=== PATIENT | female | born 1960 | race Caucasian/White ===

== ENCOUNTER 2020-05-02 09:22 | Day surgery (SDC) | payer OTHER ==
[2020-05-02] MEDS ORDERED: Ringers Lactate 1,000 ML IV ONE (10:08)
[2020-05-02] MEDS ORDERED: propofoL 200 MG/20 ML VIAL IV ONE ×2 (11:15→11:54)
[2020-05-02] MEDS ORDERED: LIDOCAINE 1% MPF 5 ML VIAL ONE (11:16)
--- NOTE | 2020-05-02 11:55 | ENDO RPT ---
[address], [address] COLONOSCOPY PROCEDURE REPORT EXAM DATE: 05/02/2020 PATIENT NAME: Teresa Vallecillo MR #: [id number] BIRTHDATE: 1960 ATTENDING: Philip Franco DR STATUS: outpatient CURTAIN DRIER: Daquan Cao and Salina Holland RN INDICATIONS: The patient is a 60 yr old Female here for a colonoscopy due to colon cancer screening PROCEDURE PERFORMED: Colonoscopy with biopsy - cold polypectomy MEDICATIONS: Per Anesthesia. ESTIMATED BLOOD LOSS: None CONSENT: The patient understands the risks and benefits of the procedure and understands that these risks include, but are not limited to: sedation, allergic reaction, infection, perforation and/or bleeding. Alternative means of evaluation and treatment include, among others: physical exam, x-rays, and/or surgical intervention. The patient elects to proceed with this endoscopic procedure. DESCRIPTION OF PROCEDURE: During intra-op preparation period all mechanical medical equipment was checked for proper function. Hand hygiene and appropriate measures for infection prevention was taken. Procedure, possible complications, alternatives including, but not limited to possibility of bleeding, perforation, tear, infection, sepsis, need for surgery, need for blood transfusion, were explained to the patient. After the risks, benefits and alternatives of the procedure were thoroughly explained, Informed consent was verified, confirmed and timeout was successfully executed by the treatment team. The patient was placed in the left lateral position. A digital rectal exam was performed and revealed a palpable rectal mass. After appropriate level of anesthesia, the scope was passed. The [id number] ([id number]) endoscope was introduced through the anus and advanced to the cecum, which was identified by both the appendix and ileocecal valve. The quality of the prep was fair. The instrument was then slowly withdrawn as the colon was fully examined. Scope withdrawal time was 12 minutes. COLON FINDINGS: Three small smooth flat polyps with friable surfaces were found at the cecum and splenic flexure. A polypectomy was performed with a cold snare and with cold forceps. The resection was complete, the polyp tissue was completely retrieved and sent to histology. A medium sized polypoid shaped, smooth and firm pedunculated polyp was found in the anal canal, this was unable to be removed due to position, firmness, snare unable to transect. Small internal hemorrhoids were found. Retroflexed views revealed no abnormalities. The scope was then completely withdrawn from the patient and the procedure terminated. ADVERSE EVENTS: There were no complications. IMPRESSIONS: 1. Three small flat polyps were found at the cecum and splenic flexure; polypectomy was performed with a cold snare and with cold forceps 2. Medium sized pedunculated polyp was found 3. Small internal hemorrhoids RECOMMENDATIONS: 1. avoid NSAIDS for 2 weeks 2. fiber rich diet 3. await biopsy results 4. follow-up: office 2 week(s) 5. Monitor for any evidence of rectal bleeding. 6. surgery - Patient will require Exam under anesthesia with anal polyp removal 7. hemorrhoidal hygiene 8. increase dietary water RECALL: for Colonoscopy, pending biopsy results. Philip Franco DR eSigned: Philip Franco DR 05/02/2020 11:54 AM cc: CPT CODES: ICD9 CODES: PATIENT NAME: Teresa Vallecillo MR#: [id number]
[2020-05-02] MEDS ORDERED: FENTANYL CITR 100 MCG/2 ML ONE (12:54)
[2020-05-02] MEDS ORDERED: MIDAZOLAM HCL 2 MG/2 ML INJ ONE (12:54)
[2020-05-02 13:19] VITALS: O2SAT 100
[2020-05-02 13:20] VITALS: TEMP 98.7
[2020-05-02 13:21] VITALS: BP 137/76
== END 2020-05-02 12:55 | disposition home or self-care (01) ==
LOC: OR 09:22
PROVIDERS: ATTEND Surgery
PROC: 0DBL8ZX Excision of Transverse Colon, Via Natural or Artificial Opening Endoscopic, Diagnostic (ICD-10-PCS; 2020-05-02)
PROC: 0DBH8ZX Excision of Cecum, Via Natural or Artificial Opening Endoscopic, Diagnostic (ICD-10-PCS; principal; 2020-05-02 11:45)
DX: D12.0 Benign neoplasm of cecum (principal); D12.3 Benign neoplasm of transverse colon; K62.0 Anal polyp; K64.9 Unspecified hemorrhoids; Z12.11 Encounter for screening for malignant neoplasm of colon; Z72.0 Tobacco use; I10 Essential (primary) hypertension; M19.90 Unspecified osteoarthritis, unspecified site
CPT/HCPCS: 88305; 45385; 45380; J2704 ×2; J7120; J2250; J3010

== ENCOUNTER 2020-06-14 07:07 | Day surgery (SDC) | payer OTHER ==
--- OUTSIDE RECORDS SUMMARY | 2020-06-14 07:11 | XMS REPORT | Continuity of Care Document ---
:1960 Author Organization [facility] t Address [address] [place] [address] Care Team Providers Name Role Phone Unavailable Unavailable Unavailable Problems This patient has no known problems. Allergies, Adverse Reactions, Alerts Allergy Allergy Status Severity Reaction(s) Onset Inactive Treating Comm ents Source Name Type Date Date Clinician Lisinopr Adverse [facility] cough [facility] Medications Ordered Filled Start Stop Current Ordering Indication Dosage Frequency Signature Comments Components Source Medication Medication Date Date Medication? Clinician (SIG) Name Name Martinez Henriquez Yes Dorothy [address] [facility] [place] [facility] Losartan Losartan Yes Dorothy [address] [facility] Potassium Potassium [place] [facility] Advil Advil Yes Dorothy [address] [facility] [place] with food [facility] or milk [facility] Zyrtec Zyrtec Yes Dorothy [address] [facility] Allergy Allergy [place] [facility] Tylenol Tylenol Yes Dorothy [address] [facility] [place] [facility] Procedures This patient has no known procedures. Encounters Start End Encounter Admission Attending Care Care Encounter Source Date/Time Date/Time Type Type Clinicians Facility Department ID 2020-06-09 2020-06-09 Outpatient [facility] [id number] [facility] 2020-04-28 2020-04-28 Outpatient [facility] [id number] [facility] 2020-04-28 2020-04-28 Out[facility] [id number] [facility] 2020-04-28 2020-04-28 Out[facility] [id number] [facility] 2020-04-13 2020-04-13 Out[facility] [id number] [facility] 2020-03-15 2020-03-15 Out[facility] [id number] [facility] 2020-03-14 2020-03-14 Out[facility] [id number] [facility] 2020-03-13 2020-03-13 Out[facility] [id number] [facility] 2020-02-11 2020-02-11 Outpatient [facility] [id number] [facility] 2020-02-04 2020-02-04 Outpatient [facility] [id number] [facility] 2020-01-24 2020-01-24 [facility] [id number] [facility] 09:40[facility]00 09:40:00 [facility] 2020-01-10 2020-01-10 [facility] [id number] [facility] 08:58:00 08:58:00 [facility] 2019-12-08 2019-12-08 [facility] [id number] [facility] 16:40:00 16:40:00 t [facility] Medicine l Medicine Outpati ent Clinics 2019-11-03 2019-11-03 [facility] [id number] 09[facility]20:00 09:20:[address] [facility] [address] [facility] Medicine l Medicine Outpat[facility] ent Clinics 2019-11-03 2019-11-03 [facility] [id number] 08:13:00 08:13:00 t [facility] Medicine l Medicine Outpati ent Clinics 2019-10-13 2019-10-13 [facility] [id number] 16:40:00 16:40:00 t [facility] l Medicine Outpati ent Clinics 2019-10-12 2019-10-12 [facility] [id number] 09:58:00 09:58:00 t [facility] l Medicine Outpati ent Clinics 2019-07-21 2019-07-21 [facility] [id number] 18:04:00 18:04:00 t [facility] Medicine Outpati ent Clinics 2019-06-30 2019-06-30 [facility] [id number] [address] 08:58:00 08:58:00 t [facility] Medicine l Medicine Outpati ent Clinics 2019-06-23 2019-06-23 [facility] [id number] 13[facility]00:00 13:00:00 t [facility] [address] [facility] Medicine l Medicine Outpati ent Clinics 2019-06-16 2019-06-16 [facility] [id number] [address] 16:20:00 16:20:[address] [facility] l Medicine Outpati ent Clinics 2019-06-02 2019-06-02 [facility] [id number] [address] 14[facility]00:00 14:00:00 t [facility] l Medicine Outpati ent Clinics 2019-05-31 2019-05-31 [facility] [id number] 14:00:00 14:00:00 t [facility] Medicine Outpati ent Clinics 2019-05-20 2019-05-20 [facility] [id number] 13:00:00 13:00:00 [facility] Medicine Outpati ent Clinics 2019-05-14 2019-05-14 [facility] [id number] 16:40:00 16:40:00 [facility] Medicine Outpati ent Clinics 2019-04-29 2019-04-29 [facility] [id number] 11:40:00 11:40:00 [facility] Outpat[facility] ent Clinics 2019-04-26 2019-04-26 [facility] [id number] 14:40:00 14:40:00 [facility] Clin[facility] 2019-04-23 2019-04-23 [facility] [id number] 11:40:00 11:40:00 [facility] Clin[facility] 2019-04-07 2019-04-07 [facility] [id number] 16:20:00 16:20:00 [facility] Clin[facility] 2019-04-01 2019-04-01 [facility] [id number] [facility] 16:20:00 16:20:00 [facility] Clin[facility] 2019-03-26 2019-03-26 [facility] [id number] 14:00:00 14:00:00 [facility] Clin[facility] 2019-03-23 2019-03-23 [facility] [id number] 16:20:00 16:20:00 t [facility] Medicine Outpati ent Clinics 2019-03-18 2019-03-18 [facility] [id number] 11:40:00 11:40:00 t [facility] Medicine Outpati ent Clinics 2019-03-16 2019-03-16 [facility] [id number] 09:00:00 09:00:00 t [facility] Medicine Outpati ent Clinics 2019-03-03 2019-03-03 [facility] [id number] 10:00:00 10:00:00 t [facility] Medicine Out[facility]i ent Clinics 2019-02-18 2019-02-18 [facility] [id number] [address] 11:40:00 11:40:00 t [facility] Medicine Outpati ent Clinics 2019-01-29 2019-01-29 [facility] [id number] 15:57:00 15:57:00 t [facility] Medicine Outpati ent Clinics 2018-12-29 2018-12-29 [facility] [id number] 14:40:00 14:40:00 t [facility] Medicine [facility] Clinics 2018-09-01 2018-09-01 [facility] [id number] 11:20:00 11:20:00 t [facility] Clinics 2018-08-11 2018-08-11 [facility] [id number] 12:53:00 12:53:00 t [facility] Medicine Outpat[facility] Clinics 2018-06-01 2018-06-01 [facility] [id number] 08[facility]45:00 08:45:00 t [facility] Medicine Outpati ent Clinics 2018-05-25 2018-05-25 [facility] [id number] 17:55:00 17:55:00 [facility] 2018-05-25 2018-05-25 Outpatient Ivan Valdez [id number] [facility] 15:47:00 15:47:00 [facility] 2018-04-15 2018-04-15 Outpatient Ivan Valedz [id number] [facility] [address] 09:48:00 09:48:00 [facility] ent Clinics Results This patient has no known results.
--- OUTSIDE RECORDS SUMMARY | 2020-06-14 07:12 | XMS REPORT ---
:1960 Author Organization [facility] Address [address] [place] [address] Care Team Providers Name Role Phone Shellie Unavailable [phone] PROBLEMS Type Condition ICD9-CM PCX40-TO Onset Condition W/U Status Risk SNOM ED Notes Code Code Dates Status Code Problem HTN I10 Active confirmed 13940186 (hypertension ) Problem Mixed E78.2 Active confirmed 599759285 hyperlipidemi a Problem Anxiety F41.9 Active confirmed 11955720 Problem Adverse T46.6X5A Active confirmed 558323505 effect of antihyperlipi demic and antiarteriosc lerotic drugs, initial encounter Problem Depression F41.8 Active confirmed 703754226 with anxiety Problem History of Z98.82 Active confirmed breast implant Problem Osteopenia of M85.88 Active confirmed 723900 000 lumbar spine Problem Vitamin D E55.9 Active confirmed 31453985 deficiency Problem Breast Z98.82 Active confirmed 688308390 implant status Problem Chronic J30.9 Active confirmed 97103554 allergic rhinitis Problem Myalgia, M79.10 Active confirmed [id number] unspecified 0953026 site ALLERGIES Allergen (clinical drug Drug/Non Drug Allergy Reaction Allergy Type Onset Date Status ingredient) documented on EMR lisinopril Lisinopril([facility] cough Drug Allergy Active Code:[address]-23) ENCOUNTERS from 1960 to 2020-06-13 Encounter Location Date Provider Diagnosis [facility] [address] 29 May, 2020 Dorothy Hensley Pre-procedure lab Family Medicine [place], [place] exam Z01 .812 [id number] IMMUNIZATIONS No Information SOCIAL HISTORY Tobacco Use: Social History Observation Description Date Details (start date - stop date) Current Smoker Sex Assigned At : Social History Observation Description Sex Assigned At Unknown Alcohol Screen Question Answer Notes Did you have a drink containing alcohol in the past year? Ye s Points 0 Interpretation Negative How many drinks did you have on a typical day when you were 1 or 2 (0 points) drinking in the past year? Tobacco Use/Smoking Question Answer Notes Are you a current smoker How many cigarettes a day do you smoke? 6-10 How soon after you wake up do you smoke your first cigarette ? 31-60 minutes How often do you smoke cigarettes? every day REASON FOR REFERRAL No Information VITAL SIGNS No information MEDICATIONS Medication SIG (Take, Route, Notes Start Date End Date Status Frequency, Duration) BusPIRone HCl 5 MG 1 tablet Orally Twice a Apr, Active day for 90 days Tylenol 325 MG 1 tablet as needed Orally Active every 4 hrs Advil 200 MG 1 tablet with food or A ctive milk as needed Orally Three times a day Losartan Potassium 100 MG 1 tablet Orally Once a Active day for 90 Zetia 10 MG 1 tablet Orally Once a A ctive day for 90 Metoprolol Succinate ER TK 1 T PO QD Oral for 30 Active 50 MG Zyrtec Allergy 10 MG 1 tablet Orally Once a Active day for 30 day(s) PROCEDURES No Information RESULTS Component Value Reference Range SARS-COV 2 Antigen Reviewed date:06/13/2020 19:04:01 Interpretation:Negative Performing Lab: REASON FOR VISIT COVID Antigen - NEGATIVE MEDICAL (GENERAL) HISTORY Type Description Date Medical History Hyperlipidemia Medical History Depression with anxiety Medical History HTN (hypertension) Medical History Sciatica of left side Medical History Sciatica of left side Medical History Sciatica, right side Medical History Pain in right knee Medical History Pain in left knee Medical History Ventral hernia without obstruction or ga ngrene Medical History Other headache syndrome Medical History Other headache syndrome Surgical History 1985 Surgical History Hysterectomy Fibroids 2000 Surgical History APA bilateral Knees- torn meniscus 2012, 2016 Surgical History Breast Implants Goals Section No Information Health Concerns No Information MEDICAL EQUIPMENT No Information MENTAL STATUS No Information FUNCTIONAL STATUS No Information ASSESSMENTS Encounter Date Diagnosis Assessment Notes Treatment Notes Treatm ent Clinical Notes May, Pre-procedure lab exam (ICD-10 - Z01.812) PLAN OF TREATMENT Medication Medication Name Sig Start Date Stop Date Losartan Potassium 100 MG 1 tablet Orally Once a day for 90 Zetia 10 MG 1 tablet Orally Once a day for 90 Insurance Providers Payer Name Payer Payer Insured Name Patient Coverage Covera ge End Address Phone Relationship to Start Date Wilfrid e Insured [employer] [phone] Teresa Vallecillo self [id number] [facility] [id number]
[2020-06-14] MEDS ORDERED: Ringers Lactate 1,000 ML IV ONE (07:42)
[2020-06-14] MEDS ORDERED: CEFAZOLIN/SWI 1gm 1 GM/10 ML SYR ONE (07:42)
[2020-06-14] MEDS ORDERED: MIDAZOLAM HCL 2 MG/2 ML INJ ONE (07:55)
[2020-06-14] MEDS ORDERED: propofoL 200 MG/20 ML VIAL IV ONE (07:55)
[2020-06-14] MEDS ORDERED: FENTANYL CITR 100 MCG/2 ML ONE (07:56)
[2020-06-14] MEDS ORDERED: LIDOCAINE 1% MPF 5 ML VIAL ONE (07:56)
[2020-06-14] MEDS ORDERED: dexAMETHasone 10 MG/ML VIAL ONE (09:02)
[2020-06-14] MEDS ORDERED: KETOROLAC 30 MG/ML INJ ONE (09:02)
[2020-06-14] MEDS ORDERED: ONDANSETRON 4 MG/2 ML VIAL ONE (09:20)
--- NOTE | 2020-06-14 09:27 | P.OP ---
Preoperative diagnosis: Anal Mass Postoperative diagnosis: Anal Ulcer Primary procedure: Exam under anesthesia, biopsy of anal ulcer @ 6 oclock position Secondary procedure: anoscopy, proctoscopy Anesthesia: GETA + Local Estimated blood loss: <2cc Specimen: anal mucosae with ulcer from 6 oclock position Findings: No anal mass noted, where anal mass was noted, an ulcer remained Complications: None Transferred to: Recovery Room Condition: Good
[2020-06-14] MEDS ORDERED: SUCCINYLCHOLINE 20 MG/ML (10 ML) IV ONE (09:46)
--- NOTE | 2020-06-14 10:33 | OP ---
Date of Procedure: 06/14/2020 Surgeon: Philip Franco MD, Preoperative Diagnosis: Anal mass. Postoperative Diagnosis: Anal ulcer. Primary Procedures: 1.Exam under anesthesia. 2.Biopsy of anal ulcer at 6 o'clock position. 3.Anoscopy. 4.Proctoscopy. Anesthesia: General endotracheal plus local with 0.25% Marcaine without epinephrine. Estimated Blood Loss: Less than 2 mL. Specimen: Anal mucosa with an ulcer from the 6 o'clock position. Findings: Anal mass was previously noted on colonoscopy and also remained at the 6 o'clock position. Complications: None. The patient transferred to recovery room in good condition. Brief History Of Present Illness: The patient is a 60-year-old female known to me from previous colo noscopy. A digital rectal exam was performed at that point and discovered an approximately 2.5 cm an al mass at the 6 o'clock position. The remainder of the colonoscopy found a few tubular adenomas. T he anal mass was unable to be removed at that point due to inability to get a snare around it at that point. However, the patient was seen for postoperative discussion and we opted to perform an exam u nder anesthesia and removal of the anal mass. The patient presented for the above-stated issue today . Procedure In Detail: After informed consent was obtained, the patient was placed in the lithotomy po sition. After the patient was prepped and draped in the usual sterile fashion and adequate anesthesi a was achieved, I anesthetized the perianal area with 0.25% Marcaine without epinephrine. I then per formed a digital rectal examination. I only noted internal anal hemorrhoids and external anal skin t ags consistent with central piles at the 7 o'clock position and at the anterior and posterior and lat eral cushions had small hemorrhoids without evidence of thrombosis. They were grade 1 internal anal hemorrhoids. I performed sequential dilatation using anoscopy and was unable to palpate or visualize an anal mass which was previously seen right at the anal margin on previous colonoscopy, as such I o pted to use a larger anoscope and circumferentially inspected the area only and ulcer remained at the 6 o'clock position. As such, I opted to perform a proctoscopy up to 25 cm and this was performed wi thout finding any additional anal masses or air pathology at this point. As such I opted at this poi nt to put the anoscope back in and perform a biopsy of this ulceration. As such I scored the mucosa circumferentially around this approximately a quarter to a third of a centimeter anal ulceration at t he 6 o'clock position using electrocautery. I then used the LigaSure device to remove the anal mucos a sparing the muscle underneath after dissection with a hemostatic clamp to separate the mucosa. At this point this specimen was sent off for pathologic examination and I irrigated the area. No hemost atic maneuvers were required as the LigaSure had good hemostasis. At this point I used a 2-0 chromic suture to reapproximate the mucosa over the top and irrigated the anus. At this point there was no hemostatic maneuver required. I placed Gel-Foam in the anal canal at this point and a sterile dressi ng placed over top. The patient tolerated the procedure well without evidence of complication and tr ansferred to PACU in good condition. All counts were correct at the end of the case. KIMANI/DRE Voice ID: [id number] Report ID: [id number]
[2020-06-14 10:56] VITALS: BP 134/77; TEMP 96.5; O2SAT 99
== END 2020-06-14 10:40 | disposition home or self-care (01) ==
LOC: PRE 07:07
PROVIDERS: ATTEND Surgery
PROC: 0DJD8ZZ Inspection of Lower Intestinal Tract, Via Natural or Artificial Opening Endoscopic (ICD-10-PCS; principal; 2020-06-14 08:30)
DX: K62.9 Disease of anus and rectum, unspecified (principal); K64.4 Residual hemorrhoidal skin tags; K64.8 Other hemorrhoids; Z20.822 Contact with and (suspected) exposure to COVID-19
CPT/HCPCS: 88305; 46606; J2704; J0330; J2250; J3010; J1100; J0690; J7120; J2405

== ENCOUNTER 2022-06-14 08:55 | Day surgery (SDC) | payer BC ==
[2022-06-14] MEDS ORDERED: Ringers Lactate 1,000 ML IV ONE (09:15)
[2022-06-14] MEDS ORDERED: propofoL 200 MG/20 ML VIAL IV ONE ×2 (11:43)
[2022-06-14] MEDS ORDERED: LIDOCAINE 1% MPF 5 ML VIAL ONE (11:43)
--- NOTE | 2022-06-14 12:20 | ENDO RPT ---
[address], [address] COLONOSCOPY PROCEDURE REPORT EXAM DATE: 06/14/2022 PATIENT NAME: Teresa Vallecillo MR #: [id number] BIRTHDATE: 1960 ATTENDING: Philip Franco DR STATUS: outpatient TALENT DEVELOPMENT DIRECTOR: Fay Lozoya RN and Daquan Hutchinson [facility] INDICATIONS: The patient is a 62 yr old Female here for a colonoscopy due to colon cancer screening PROCEDURE PERFORMED: Colonoscopy with biopsy - cold polypectomy MEDICATIONS: Per Anesthesia. ESTIMATED BLOOD LOSS: None CONSENT: The patient understands the risks and benefits of the procedure and understands that these risks include, but are not limited to: sedation, allergic reaction, infection, perforation and/or bleeding. Alternative means of evaluation and treatment include, among others: physical exam, x-rays, and/or surgical intervention. The patient elects to proceed with this endoscopic procedure. DESCRIPTION OF PROCEDURE: During intra-op preparation period all mechanical medical equipment was checked for proper function. Hand hygiene and appropriate measures for infection prevention was taken. Procedure, possible complications, alternatives including, but not limited to possibility of bleeding, perforation, tear, infection, sepsis, need for surgery, need for blood transfusion, were explained to the patient. After the risks, benefits and alternatives of the procedure were thoroughly explained, Informed consent was verified, confirmed and timeout was successfully executed by the treatment team. The patient was placed in the left lateral position. A digital rectal exam was performed and revealed external hemorrhoids and A digital rectal exam was performed and revealed internal hemorrhoids. After appropriate level of anesthesia, the scope was passed. The EC-[id number] ([id number]) endoscope was introduced through the anus and advanced to the cecum, which was identified by both the appendix and ileocecal valve. The quality of the prep was fair. The instrument was then slowly withdrawn as the colon was fully examined. Scope withdrawal time was 10 minutes. COLON FINDINGS: Three polypoid shaped and smooth sessile polyps ranging between 3-5mm in size with friable surfaces were found in the right colon, left colon, and transverse colon. A polypectomy was performed with cold forceps. The resection was complete, the polyp tissue was completely retrieved and sent to histology. Small internal and external hemorrhoids were found. Retroflexed views revealed no abnormalities. The scope was then completely withdrawn from the patient and the procedure terminated. ADVERSE EVENTS: There were no complications. IMPRESSIONS: 1. Three sessile polyps ranging between 3-5mm in size were found in the right colon, left colon, and transverse colon; polypectomy was performed in a piecemeal fashion with cold forceps 2. Small internal and external hemorrhoids RECOMMENDATIONS: 1. fiber rich diet 2. await biopsy results 3. avoid NSAIDS for 2 weeks 4. follow-up: office 2 week(s) 5. Monitor for any evidence of rectal bleeding. 6. increase dietary water 7. hemorrhoidal hygiene RECALL: for Colonoscopy, pending biopsy results. Philip Franco DR eSigned: Philip Franco DR 06/14/2022 12:20 PM cc: CPT CODES: ICD9 CODES: PATIENT NAME: Teresa Vallecillo MR#: [id number]
[2022-06-14 14:32] VITALS: TEMP 98.5; O2SAT 100
[2022-06-14 14:33] VITALS: BP 153/82
== END 2022-06-14 12:50 | disposition home or self-care (01) ==
LOC: OR 08:55
PROVIDERS: ATTEND Surgery
PROC: 0DBL8ZX Excision of Transverse Colon, Via Natural or Artificial Opening Endoscopic, Diagnostic (ICD-10-PCS; 2022-06-14)
PROC: 0DBF8ZX Excision of Right Large Intestine, Via Natural or Artificial Opening Endoscopic, Diagnostic (ICD-10-PCS; 2022-06-14)
PROC: 0DBG8ZX Excision of Left Large Intestine, Via Natural or Artificial Opening Endoscopic, Diagnostic (ICD-10-PCS; principal; 2022-06-14 11:00)
DX: Z12.11 Encounter for screening for malignant neoplasm of colon (principal); D12.4 Benign neoplasm of descending colon; D12.2 Benign neoplasm of ascending colon; D12.3 Benign neoplasm of transverse colon; K64.8 Other hemorrhoids; K64.4 Residual hemorrhoidal skin tags
CPT/HCPCS: 93005; 88305; 45380; J2704 ×2; J2001; J7120

== ENCOUNTER 2022-06-21 10:09 | Day surgery (SDC) | payer BC ==
[2022-06-18 11:30] LABS: Potassium 3.9 mmol/L (3.5-5.1)
[2022-06-21] MEDS ORDERED: Ringers Lactate 1,000 ML IV ONE ×2 (10:37→13:26)
[2022-06-21] MEDS ORDERED: CEFAZOLIN SODIUM 2 GM/VIAL ONE (10:37)
[2022-06-21] MEDS ORDERED: LIDOCAINE 2% MPF 5 ML VIAL ONE (11:13)
[2022-06-21] MEDS ORDERED: MIDAZOLAM HCL 2 MG/2 ML INJ ONE (11:13)
[2022-06-21] MEDS ORDERED: ROCURONIUM 50 MG/5 ML VIAL IV ONE (11:13)
[2022-06-21] MEDS ORDERED: FENTANYL CITR 100 MCG/2 ML ONE ×2 (11:13→12:00)
[2022-06-21] MEDS ORDERED: propofoL 200 MG/20 ML VIAL IV ONE (11:13)
[2022-06-21] MEDS ORDERED: NS 0.9% VIAL 10 ML ONE (11:14)
[2022-06-21] MEDS ORDERED: KETOROLAC 30 MG/ML INJ ONE (12:02)
[2022-06-21] MEDS ORDERED: GLYCOPYRROLATE 0.2 MG/ML SYR ONE (12:02)
[2022-06-21] MEDS ORDERED: dexAMETHasone 10 MG/ML VIAL ONE (12:02)
[2022-06-21] MEDS ORDERED: ONDANSETRON 4 MG/2 ML VIAL ONE (12:03)
[2022-06-21] MEDS ORDERED: NEOSTIGMINE 1 MG/ML -5 ML ONE (12:03)
[2022-06-21] MEDS ORDERED: EPHEDRINE SULF 50 MG/ML VIAL ONE (12:31)
--- NOTE | 2022-06-21 13:05 | P.OP ---
Preoperative diagnosis: Epigastric Ventral Hernia Postoperative diagnosis: Epigastric Ventral Hernia Primary procedure: Laparoscopic Epigastric Ventral Hernia Repair with mesh Anesthesia: GETA + Local Estimated blood loss: <10cc Specimen: hernia contents - adipose Findings: ~3cm epigastric ventral hernia with adipose Complications: None Implants: 11.4cm [employer] Vent[address]ite ST mesh, sorbafix Transferred to: Recovery Room Condition: Good
--- NOTE | 2022-06-21 14:29 | RAD REPORT ---
EXAM DESCRIPTION: RAD - Chest Single View - 06/21/2022 1:51 pm CLINICAL HISTORY: r/o pneumo COMPARISON: Chest Pa And Lat (2 Views) dated 09/10/2017; Chest Pa And Lat (2 Views) dated 06/27/2017; C hest Pa And Lat (2 Views) dated 06/12/2017 FINDINGS: Lines: None. Lungs: Hazy opacities overlying both lung bases. Prominence of the pulmonary interstitium also noted. Pleural: No significant pleural effusions or pneumothorax. Cardiac: The heart size is within normal limits. Mediastinum: Within normal limits. Bones: No acute fractures. Other: None IMPRESSION: No pneumothorax. Diffuse prominence of the pulmonary interstitium with more ill-defined opacities in the lung bases could reflect basilar atelectasis and/or pneumonia on a background of mil d edema.
[2022-06-21 14:42] VITALS: BP 155/79; TEMP 97.6; O2SAT 95
--- NOTE | 2022-06-21 22:23 | OP ---
Date of Procedure: 06/21/2022 Surgeon: Livia Franco MD, Preoperative Diagnosis: Epigastric ventral hernia. Postoperative Diagnosis: Epigastric ventral hernia. Procedure Performed: Laparoscopic epigastric ventral hernia repair with mesh. Anesthesia: General endotracheal plus local with 0.25% Marcaine. Estimated Blood Loss: 10 cc. Specimen: Hernia contents with adipose tissue. Findings: Approximately 3 cm incarcerated epigastric ventral hernia. Complications: None. Implants: 11.4 cm Bard Ventralight mesh with Echo Positioning System and SorbaFix absorbable fixatio n tacks. Disposition: Patient transferred to recovery room in good condition. Procedure In Detail: After informed consent was obtained, patient was brought to the operating room, prepped and draped in the usual sterile fashion after adequate anesthesia was achieved anesthetizing the area of the left upper quadrant down to subcutaneous tissues. A 5 mm trocar was placed at this point, and insufflation was obtained to 15 mmHg at this time. The abdomen was inspected. There was no injury to vital structures upon entry into the abdomen. Additional trocar placed in the left mid abdomen. This was similarly anesthetized and sharply incised. A 10 mm trocar was placed under direc t visualization without evidence of complication. Patient was positioned head up position. I then u sed the LigaSure device to dissect the preperitoneal adipose tissue off the midline abdominal area wh ere an obvious hernia was appreciated with a defect in the abdominal wall in the epigastric position. I then dissected circumferentially around and removed preperitoneal incarcerated fat from this brad ia and removed it and inspected the whole area which was found to be approximately 3 cm. The adipose tissue was then transected and placed in EndoCatch bag, removed with a 12 mm trocar and sent off for pathologic examination. At this point, I sized the mesh appropriately, found an 11.4 cm Bard Ventra light mesh with Echo Positioning System which involved the mesh available to place at this position. I then sewed the defect closed using a 0 V-Loc suture on an Endo stitch with good apposition and evelyn sure of the defect. At this point, I positioned the 11.4 cm Bard Ventralight mesh centrally. After placing it into the abdomen and deploying the balloon system in the inferior aspect of this defect, t herefore, listing toward the inferior aspect away from the diaphragm. At this point, I deployed the mesh and secured a single crown to the anterior abdominal wall. I removed the balloon deployment sys tem and placed approximately 60 tacks to the anterior abdominal wall in a double crown type orientati on. There was minimal bleeding from 1 tack site which was stopped with simple pressure to the left o f midline. It was stopped with approximately 60 seconds of direct pressure. I then desufflated the abdomen, irrigated the area and took the abdominal pressure down to 5. There was no further bleeding at this point. The abdomen was then re-insufflated. The area was copiously irrigated with saline, suctioned out until completely dry. The patient was positioned back in a neutral position. At this point, I then closed the 12 mm trocar site with a Thom-Juve suture passer with an 0 Vicryl in i nterrupted fashion with good approximation of tissues. The area was inspected for hemostasis one las t time and the abdomen was desufflated under direct visualization visualizing the area of concern thr ough the left upper trocar. At this point, no additional hemostatic measures were required. The abd omen was completely desufflated. At this point, all skin incisions were then copiously irrigated and closed with a 4-0 Monocryl in a running fashion. Dermabond was placed over top. The patient tolera livia the procedure without evidence of any complication and transferred to PACU in good condition. Al l counts were correct at the end of the case. KIMANI/DRE Voice ID: [id number] Report ID: [id number]
== END 2022-06-21 14:49 | disposition home or self-care (01) ==
LOC: OR 10:09
PROVIDERS: ATTEND Surgery
PROC: 0WUF4JZ Supplement Abdominal Wall with Synthetic Substitute, Percutaneous Endoscopic Approach (ICD-10-PCS; principal; 2022-06-21 12:00)
DX: K43.9 Ventral hernia without obstruction or gangrene (principal)
CPT/HCPCS: 80048; 36415; 88302; 71045; 49593; J2704; J2001; J2250; J3010 ×2; J1100; A4216; J2710; J7120 ×2; J2405; C1781

== ENCOUNTER 2023-06-20 10:55 | Day surgery (SDC) | payer BC, OTHER ==
[2023-06-20] MEDS: Ringers Lactate 1,000 ML IV ONE (11:20)
[2023-06-20] MEDS ORDERED: LIDOCAINE 1% MPF 30 ML VIAL ONE (11:37)
[2023-06-20] MEDS ORDERED: propofoL 200 MG/20 ML VIAL IV ONE (11:37)
[2023-06-20 13:40] VITALS: BP 151/85; TEMP 97.3; O2SAT 100
--- NOTE | 2023-06-23 13:42 | EKG ---
Test Date: 2023-06-20 Test Time: 11:51:52 Manager Acute: GUSTAVO MEASUREMENT RESULTS: Intervals: Rate: 68 OH: 154 QRSD: 76 QT: 388 QTc: 412 [place]: P: 75 OH: 154 QRS: 67 T: 69 INTERPRETIVE STATEMENTS: Normal sinus rhythm with sinus arrhythmia Normal ECG Compared to ECG 06/13/2022 13:52:30 No significant changes Electronically Signed On 06-23-23 13:35:20 SUPERVISOR MENDING by Last [place]
== END 2023-06-20 12:47 | disposition home or self-care (01) ==
LOC: OR 10:55
PROVIDERS: ATTEND Surgery
PROC: 0DB68ZX Excision of Stomach, Via Natural or Artificial Opening Endoscopic, Diagnostic (ICD-10-PCS; 2023-06-20)
PROC: 0DB58ZX Excision of Esophagus, Via Natural or Artificial Opening Endoscopic, Diagnostic (ICD-10-PCS; 2023-06-20)
PROC: 0DB48ZX Excision of Esophagogastric Junction, Via Natural or Artificial Opening Endoscopic, Diagnostic (ICD-10-PCS; 2023-06-20)
PROC: 0DB98ZX Excision of Duodenum, Via Natural or Artificial Opening Endoscopic, Diagnostic (ICD-10-PCS; principal; 2023-06-20 12:30)
DX: R11.2 Nausea with vomiting, unspecified (principal); K29.50 Unspecified chronic gastritis without bleeding
CPT/HCPCS: 93005; 88312; 88305; 43239; J2704; J2001; J7120